=== PATIENT | female | born 1955 ===

== ENCOUNTER 2017-09-28 08:13 | Day surgery (SDC) | payer OTHER ==
[2017-09-28] MEDS ORDERED: Lactated Ringer's 1,000 ML IV ONE (08:47)
[2017-09-28] MEDS ORDERED: Propofol 10 mg/ml Inj (20 ML) ONE (10:52)
[2017-09-28] MEDS ORDERED: Lidocaine PF 2% (5 ml) Inj (For Cardiac Arrhy) IV ONE (10:52)
[2017-09-28 11:33] VITALS: TEMP 97.2
[2017-09-28 11:43] VITALS: BP 109/75; PULSE 75; RESP 16; O2SAT 99
== END 2017-09-28 11:51 | disposition home or self-care (01) ==
LOC: H.ENDO 08:13
PROVIDERS: ATTEND Internal Medicine Gastroenterology
DX: Z12.11 Encounter for screening for malignant neoplasm of colon (principal); D12.0 Benign neoplasm of cecum; K62.89 Other specified diseases of anus and rectum; K64.8 Other hemorrhoids; K29.50 Unspecified chronic gastritis without bleeding; K30 Functional dyspepsia
CPT/HCPCS: 43239; 45385; 88305; J2704; J7120